=== PATIENT | male | born 2000 | race Two or more races ===

== ENCOUNTER 2024-11-26 17:38 | Emergency (ER) | payer OTHER ==
[~2024-11-26] VITALS: Ht 175.3 cm; Wt 145.0 kg
[2024-11-26 17:44] VITALS: O2SAT 99
[2024-11-26 17:59] VITALS: BP 167/95; PULSE 115; RESP 20; TEMP 36.8; O2SAT 99
== END 2024-11-26 19:20 | disposition left against medical advice (07) ==
LOC: ER 17:38
DX: M79.601 Pain in right arm (principal); Z53.21 Procedure and treatment not carried out due to patient leaving prior to being seen by health care provider